=== PATIENT | female | born 1980 | race Asian ===

== ENCOUNTER 2017-09-05 00:22 | Emergency (ER) | payer OTHER ==
[~2017-09-05] VITALS: Ht 160 cm; Wt 72.6 kg
[2017-09-05 00:37] VITALS: BP_SYST 145
--- NOTE | 2017-09-05 00:37 | NUR ---
Patient to ER bed 3 to gown for evaluation. Side rails up. Report given to Leonardo EMERY .
--- NOTE | 2017-09-05 00:40 | NUR ---
Patient arrived to ED a/o x 4 with c/o chest wall pain. Patient c/o 7/10 chest wall pain s/p cough x 1 week. Patient was seen in urgent care for flu like symptoms. Treated with tamiflu. Patient slightly febrile at 99.0. Skin warm and dry. Denies N/V. Denies SOB.
--- NOTE | 2017-09-05 01:00 | NUR ---
ED MD Boothe at bedside for medical evaluation.
[2017-09-05] MEDS ORDERED: PENICILLIN G BENZATHINE 1.2 MMU/2 ML SYR IM ONE (01:30)
[2017-09-05] MEDS ORDERED: KETOROLAC TROMETHAMINE 60 MG/2 ML VIAL IM ONE (01:30)
[2017-09-05 01:40] VITALS: BP_SYST 138
--- NOTE | 2017-09-05 01:40 | NUR ---
Patient given written and verbal discharge instructions and verbalizes understanding. ER MD discussed with patient the results and treatment provided. Patient in stable condition. ID arm band removed. Rx of Motrin and prednisone given. Patient educated on pain management and to follow up with PMD. Pain Scale 3/10 at this time, tolerable for patient. Opportunity for questions provided and answered.
== END 2017-09-05 01:40 | disposition home or self-care (01) ==
LOC: SED 00:22
DX: J02.0 Streptococcal pharyngitis (principal); R07.89 Other chest pain; R06.02 Shortness of breath
CPT/HCPCS: 93005; 96372; 99284; J0561; J1885